=== PATIENT | female | born 2000 | race Caucasian/White ===

== ENCOUNTER → 2018-05-05 | Outpatient (CLI) | payer BC ==
--- NOTE | 2018-05-06 07:39 | CT ---
EXAMINATION TYPE: CT soft tissue neck w con DATE OF EXAM: 05/05/2018 HISTORY: Patient complains of right side submandibular mass, marked by BB. COMPARISON: NONE CT DLP: 524 mGycm. Automated Exposure Control for Dose Reduction was Utilized. TECHNIQUE: CT scan of the neck is performed with IV Contrast, patient injected with 100 mL of Isovue 300, axial images are obtained, coronal and sagittal reformatted images are reviewed. FINDINGS: A BB is placed at level of palpable abnormality right submandibular level axial image 40. N o worrisome asymmetric solid or cystic mass or fluid collection is identified at this level. There ar e prominent but subcentimeter lymph nodes that are symmetric in appearance seen throughout the neck b ilaterally, one of the largest for reference is in the left neck immediately anterior to the internal jugular vein measuring 10 x 9 mm axial image 34. Airway: No gross abnormality seen. Parotid/submandibular glands: Submandibular glands are symmetric and felt within normal limits with m etallic BB at the mid to inferior portion of right submandibular gland Carotid/Vascular Structures: No suspicious abnormality is evident. Osseous Structures: No suspicious abnormality is evident. Other: No additional significant findings seen IMPRESSION: No obvious worrisome mass or fluid collection. Symmetric prominent but subcentimeter lym ph nodes throughout the neck bilaterally favored benign otherwise unremarkable study.
== END | disposition home or self-care (01) ==
LOC: RADCTMAIN 18:04
PROVIDERS: ATTEND Family Medicine
DX: R22.1 Localized swelling, mass and lump, neck (principal)
CPT/HCPCS: 70491; Q9967